=== PATIENT | female | born 1980 | race Caucasian/White ===

== ENCOUNTER 2024-06-10 18:47 | Emergency (ER) | payer OTHER, SELFPAY ==
[2024-06-10 18:49] VITALS: BP 168/103
[2024-06-10] MEDS: TORADOL 15 MG IV (19:44)
[2024-06-10 19:53] LABS: % Basophils 0.5 % (0-2); % Eosinophils 0.6 % (0-6); % Immature Granulocytes 0.2 % (0-0.5); % Lymphocytes 14.7 % (20.5-51.1); % Monocytes 8.1 % (1.7-9.3); % Neutrophils 75.9 % (42.2-75.2); Absolute Basophils 0.1 10^3/uL (0-0.2); Absolute Eosinophils 0.1 10^3/uL (0-0.7); Absolute Lymphocytes 1.6 10^3/uL (1.2-3.4); Absolute Monocytes 0.9 10^3/uL (0.1-0.6); Absolute Neutrophils 8.4 10^3/uL (1.4-6.5); Hematocrit 40.9 % (37.0-47.0); Hemoglobin 14.6 g/dL (12.0-16.0); Mean Corp Hgb Conc. 35.7 g/dL (33.0-37.0); Mean Corpuscular Hgb 30.4 pg (27.0-31.0); Mean Corpuscular Volume 85.2 fL (81.0-99.0); Mean Platelet Volume 10.9 fL (7.4-10.4); Nucleated Red Blood Cells % 0 %; Platelet Count 223 10^3/uL (130-400); Red Cell Dist. Width 12.3 % (11.5-14.5)
[2024-06-10 20:05] LABS: Blood Urea Nitrogen 12 mg/dl (7-17); Calcium 9.3 mg/dl (8.4-10.2); Carbon Dioxide 26 mmol/L (22-30); Chloride 104 mmol/L (98-107); Glucose 95 mg/dl (70-99); Potassium 3.7 mmol/L (3.5-5.1); Sodium 142 mmol/L (135-145); eGFR > 60.00
[2024-06-10 21:19] VITALS: BP 137/97
--- NOTE | 2024-06-10 22:43 | ED.GENMED ---
History of Present Illness
General
Chief Complaint: Facial Problem
Source: patient
Exam Limitations: none
Time Seen by Provider: 06/10/24 19:20
Nursing documentation reviewed up to this point in time: agreed with
History of Present Illness
History of Present Illness:
Patient to ED wtih complalint of right 1st molar pain, jaw and neck swelling. Pain started yesterday but swelling has worsenend. SHe was placed on doxycyline by PCP, she has had 1 dose. Advised to come to ED due to swelling No difficulty
breathing or swallowing.
Past History
Past History
ED Past Medical History: None
ED Past Surgical History: None
Review of Systems
Review of Systems
Allergies reviewed?: Yes
All Other Systems: ROS reviewed and negative except as documented in HPI and ROS
Constitutional: Reports no symptoms
EENT: Reports other (right 1st molar pain)
Respiratory: Reports no symptoms
Cardiac: Reports no symptoms
ABD/GI: Reports no symptoms
: Reports no symptoms
Musculoskeletal: Reports no symptoms
Skin: Reports other (swelling to right jaw and neck)
Neurological: Reports no symptoms
Psychiatric: Reports no symptoms
Phy Exam
General Physical Exam
General Presentation: mild distress
General age: appears stated age
General Skin: warm and dry
General Habitus: normal
ENT Exam
ENT Exam: pharynx normal, neck supple and other (Pain to right 1st molar. No evidence of dental caries, dental abscess. Swallowing well.)
Musculoskeletal Exam
Musculoskeletal Exam: full ROM and neuro vasc intact
Skin Exam
Skin Exam: normal color, warm/dry and no rash
Psychiatric Exam
Psychiatric Exam: normal mood/affect
Course
Orders/Labs/Results
Orders:
Orders
06/10/24 19:[address] [CT Neck With Iv Contrast] Urgent
Comment:
Reason For Exam: right jaw and neck swelling
06/10/24 19:42
Basic Metabolic Panel Urgent
Complete Blood Count/With Diff Urgent
06/10/24 19:43
Ketorolac [Toradol] 15 mg .ROUTE .STK-MED ONE
Ketorolac [Toradol] 15 mg IV NOW STA
Abnormal Lab Results
06/10/24
19:42
WBC 11.0 H 10^3/uL
(4.8-10.8)
MPV 10.9 H fL
(7.4-10.4)
Absolute Neuts (auto) 8.4 H 10^3/uL
(1.4-6.5)
Absolute Monos (auto) 0.9 H 10^3/uL
(0.1-0.6)
Neutrophils % 75.9 H %
(42.2-75.2)
Lymphocytes % 14.7 L %
(20.5-51.1)
06/10/24 19:42
06/10/24 19:42
Vital Signs
Initial and Last Documented VS:
Initial Vital Signs
Temp Pulse Resp BP Pulse Ox
99.4 F 95 20 168/103 98
06/10/24 18:49 06/10/24 18:49 06/10/24 18:49 06/10/24 18:49 06/10/24 18:49
Last Documented Vital Signs
Temp Pulse Resp BP Pulse Ox
99.4 F 97 18 137/97 100
06/10/24 18:49 06/10/24 21:19 06/10/24 21:19 06/10/24 21:19 06/10/24 21:19
MDM/Problems Addressed
Differential Diagnosis Includes:
Patient to ED with complaint of right molar pain, right jaw and neck swelling. Has had 1 dose of doxycycline [employer]. No fever/chills. No difficulty breathing or swallowing. Labs, CT reviewd. No evidence of abscess formation. Will continue
doxycycline and follow up with dentist in the AM. Given instructions on s/s to return to ED and she is agreeable to plan. DDxDental abscess, salivary gland stone
*Radiology
Radiology exam reviewed: radiology read reviewed
*Pulse Oximetry
Patient hypoxic: no
*Critical Care Note
Total Time (30-74mins, 75-104mins- exclusive of procedures): Not Applicable
ED Attending Note
-
Portions of this chart may have been created with voice recognition software.� Occasional wrong word or��sound alike� substitutions may have occurred due to the inherent limitations of voice recognition software.
Discharge Plan
Departure
Patient Disposition: Home (Routine Discharge)
Date of Disposition: 06/10/24
Time of Disposition: 21:16
Patient with high blood pressure during this ER visit?: No
Condition: Good
Covid-19: Not Applicable
Discharge Problem:
Pain, dental
Instructions: Dental Pain ED
Prescriptions:
New
ketorolac 10 mg tablet
10 mg PO Q8H PRN (Reason: Pain) 2 Days Qty: 6 0RF
Referrals:
Esteban Crawford IV, MD [Family Provider] -
Activity Restrictions/Additional Instructions:
Follow up with you dentist in the AM
Interventions
Interventions:
*Risk Screen - Suicide Last Done: 06/10/24 18:49
*General Assessment Last Done: 06/10/24 19:50
*Neglect/Abuse Screening Last Done: 06/10/24 19:50
ED- Fall Risk Assessment Last Done: 06/10/24 21:22
*ED COVID-19 Vaccine History Last Done: 06/10/24 19:50
*Nursing Disposition Last Done: 06/10/24 21:22
ED- Neurological Assessment Last Done: 06/10/24 19:50
ED-Skin Assessment Last Done: 06/10/24 19:50
Discharge Date and Time
Discharge Date/Time: 06/10/24 21:24
Print Language: FAROESE
== END 2024-06-10 21:24 | disposition home or self-care (01) ==
LOC: EMR 18:47
PROVIDERS: Nurse Practitioner; EMERGENCY PHYSICIAN Emergency Medicine; FAMILY PHYSICIAN Family Medicine
DX: K08.89 Other specified disorders of teeth and supporting structures (principal)
CPT/HCPCS: 99284; 96374; 70491; 80048; 85025; Q9967